=== PATIENT | male | born 1925 | race Caucasian/White ===

== ENCOUNTER 2016-11-24 07:08 | Inpatient (IN) | payer MEDICARE, BC ==
[~2016-11-24] VITALS: Ht 172.7 cm; Wt 102.8 kg
[~2016-11-24 07:08] MED LIST: ASPIRIN 81M81 MG/TA2 PO; ATROVENT INHALE14 GM IH; CARDIZEM CD 30300 MG PO; COZAAR 50MG50 MG/TAB PO; EYE DROPS; GLUCOPHAGE500 MG/TAB PO; GLUCOTROL10 MG PO; INDERAL 20MG20 MG PO; LASIX 20MG TABL20 MG PO; LESCOL XL PO; LEVAQUIN 5500 MG/TA1 PO; MILK OF MA400 MG/52 PO; ONGLYZA5 MG PO; TYLENOL 325MG325 MG PO; ULTRAM 50MG TAB50 MG
[2016-11-24] MEDS ORDERED: STOOL SOFTENER100 M2 PO (07:58)
[2016-11-24 08:17] LABS: ADJUSTED CALCIUM 10.2 mg/dL (8.4-10.2); ALBUMIN 3.7 gm/dL (3.5-5.0); BILIRUBIN,TOTAL 1.5 mg/dL (0.0-1.0); CREATININE, serum 1.03 mg/dL (0.66-1.25); POTASSIUM 4.8 mmol/L (3.4-5.0); TOTAL PROTEIN 7.1 gm/dL (6.4-8.2)
[2016-11-24 08:24] LABS: HEMATOCRIT 40.9 % (42.0-52.0); HEMOGLOBIN 13.6 g/dl (13.5-18.0); MEAN CELL VOLUME 92 fl (80.0-100.0); MEAN CORPUSCULAR HEMOGLOBIN 31 pg (27.0-31.0); MEAN CORPUSCULAR HGB CONC 33 g/dl (33.0-37.0); MEAN PLATELET VOLUME 9.7 fl (7.4-10.4); PLATELET COUNT 202 K/mm3 (130-400); RED BLOOD COUNT 4.44 M/mm3 (4.20-5.60); REDCELL DISTRIBUTION WIDTH-CV 15.1 % (11.5-14.5)
[2016-11-24 08:27] LABS: WHITE BLOOD COUNT 35.1 K/mm3 (4.8-10.8)
[2016-11-24 08:28] LABS: ADD PATHOLOGY DIFF REVIEW NO
[2016-11-24 08:47] LABS: BAND 32 % (0-10); METAMYELOCYTE 1 % (0-0); NEUTROPHILS 44 % (42.0-75.2); PLATELET ESTIMATE NORMAL (NORMAL); TOTAL CELLS COUNTED 200
[2016-11-24 09:03] LABS: TROPONIN-I 0.042 ng/mL (0.000-0.034)
[2016-11-24 09:42] LABS: PH 5 (5-8); SQUAMOUS EPITHELIAL 0-2 /hpf; URINE APPEARANCE Cloudy; URINE BACTERIA None Seen /hpf; URINE BILIRUBIN Negative (NEGATIVE); URINE BLOOD 1+ (NEGATIVE); URINE COLOR Amber; URINE GLUCOSE 2+ (NEGATIVE); URINE KETONE 1+ (NEGATIVE); URINE RBC 0-2 /hpf; URINE UROBILINOGEN Negative (NEGATIVE)
[2016-11-24 15:06] VITALS: BP 144/55; PULSE 96; TEMP 97.6
[2016-11-24 17:15] VITALS: BP 116/70; PULSE 100; TEMP 99
[2016-11-24] MEDS ORDERED: INDERAL60 MG PO (17:50)
[2016-11-24 19:37] VITALS: BP 152/61; PULSE 95; TEMP 97.4
[2016-11-24 23:49] VITALS: BP 119/55; PULSE 83; TEMP 97.9
[2016-11-25] VITALS (8 sets, daily range): BP systolic 102–158; BP diastolic 51–96; PULSE 67–105; TEMP 97.3–98.4
[2016-11-25 07:20] LABS: MEAN CELL VOLUME 95 fl (80.0-100.0); MEAN CORPUSCULAR HGB CONC 33 g/dl (33.0-37.0); PLATELET COUNT 193 K/mm3 (130-400); RED BLOOD COUNT 3.67 M/mm3 (4.20-5.60); REDCELL DISTRIBUTION WIDTH-CV 15.9 % (11.5-14.5); WHITE BLOOD COUNT 18.4 K/mm3 (4.8-10.8)
[2016-11-25 07:23] LABS: ADD PATHOLOGY DIFF REVIEW NO; ADJUSTED CALCIUM 9.6 mg/dL (8.4-10.2); ALBUMIN 3.1 gm/dL (3.5-5.0); CALCIUM 8.9 mg/dL (8.4-10.2); CREATININE, serum 1.47 mg/dL (0.66-1.25); HEMATOCRIT 34.7 % (42.0-52.0); HEMOGLOBIN 11.3 g/dl (13.5-18.0); MEAN CORPUSCULAR HEMOGLOBIN 31 pg (27.0-31.0); PHOSPHOROUS 4.7 mg/dL (2.5-4.5); POTASSIUM 4.5 mmol/L (3.4-5.0); TOTAL PROTEIN 6.4 gm/dL (6.4-8.2)
[2016-11-25 07:46] LABS: TROPONIN-I 0.073 ng/mL (0.000-0.034)
[2016-11-25 07:58] LABS: BAND 17 % (0-10); METAMYELOCYTE 1 % (0-0); NEUTROPHILS 49 % (42.0-75.2); TOTAL CELLS COUNTED 100
[2016-11-26] VITALS (8 sets, daily range): BP systolic 111–170; BP diastolic 45–71; PULSE 61–80; TEMP 97.1–98.7
[2016-11-26 06:56] LABS: HEMOGLOBIN 10.7 g/dl (13.5-18.0); MEAN CELL VOLUME 96 fl (80.0-100.0); MEAN CORPUSCULAR HEMOGLOBIN 30 pg (27.0-31.0); MEAN CORPUSCULAR HGB CONC 32 g/dl (33.0-37.0); PLATELET COUNT 170 K/mm3 (130-400); RED BLOOD COUNT 3.53 M/mm3 (4.20-5.60); REDCELL DISTRIBUTION WIDTH-CV 15.9 % (11.5-14.5)
[2016-11-26 06:57] LABS: ADD PATHOLOGY DIFF REVIEW NO
[2016-11-26 07:01] LABS: INR 1.1 (0.8-3.0); PROTHROMBIN TIME 12.7 SECONDS (9.7-12.8)
[2016-11-26 07:04] LABS: PARTIAL THROMBOPLASTIN TIME 28.2 SECONDS (26.0-37.0)
[2016-11-26 07:05] LABS: CALCIUM 8.9 mg/dL (8.4-10.2); CREATININE, serum 1.55 mg/dL (0.66-1.25); POTASSIUM 4.1 mmol/L (3.4-5.0)
[2016-11-26 07:25] LABS: BAND 3 % (0-10); NEUTROPHILS 65 % (42.0-75.2); PLATELET ESTIMATE NORMAL (NORMAL); TOTAL CELLS COUNTED 100
[2016-11-27 04:00] VITALS: BP 159/81; PULSE 95; TEMP 98.1
[2016-11-27 07:55] VITALS: BP 175/66; PULSE 102; TEMP 98.1
[2016-11-27 09:56] LABS: CREATININE, serum 1.22 mg/dL (0.66-1.25); POTASSIUM 4.3 mmol/L (3.4-5.0)
[2016-11-27 10:05] LABS: BASO % 0.3 % (0.0-2.0); EOS # 0.2 (0.0-0.7); EOS % 1.3 % (0-4.0); GRAN # 7.1 (1.4-6.5); GRAN % 63.7 % (42.2-75.2); LYMPH # 2.4 (1.2-3.4); LYMPH % 21.2 % (20.0-51.0); MEAN CELL VOLUME 95 fl (80.0-100.0); MEAN CORPUSCULAR HGB CONC 32 g/dl (33.0-37.0); MEAN PLATELET VOLUME 9.8 fl (7.4-10.4); MONO # 1.5 (0.1-0.6); PLATELET COUNT 171 K/mm3 (130-400); RED BLOOD COUNT 3.71 M/mm3 (4.20-5.60); REDCELL DISTRIBUTION WIDTH-CV 15.7 % (11.5-14.5); WHITE BLOOD COUNT 11.1 K/mm3 (4.8-10.8)
[2016-11-27 10:19] LABS: HEMATOCRIT 35.3 % (42.0-52.0); HEMOGLOBIN 11.2 g/dl (13.5-18.0); MEAN CORPUSCULAR HEMOGLOBIN 30 pg (27.0-31.0)
[2016-11-27 12:08] VITALS: BP 151/62; PULSE 86; TEMP 97.6
[2016-11-27 15:27] VITALS: BP 134/54; PULSE 69; TEMP 98.2
[2016-11-27 19:40] VITALS: BP 131/56; PULSE 79; TEMP 97.3
[2016-11-27 23:47] VITALS: BP 145/92; PULSE 87; TEMP 98.1
[2016-11-28 04:10] VITALS: BP 156/64; PULSE 87; TEMP 99.7
[2016-11-28 08:17] VITALS: BP 146/86; PULSE 93; TEMP 99.2
[2016-11-28 09:36] LABS: BASO % 0.2 % (0.0-2.0); EOS # 0.1 (0.0-0.7); EOS % 0.8 % (0-4.0); GRAN # 5.2 (1.4-6.5); GRAN % 59.4 % (42.2-75.2); LYMPH # 2.1 (1.2-3.4); LYMPH % 23.6 % (20.0-51.0); MEAN CELL VOLUME 96 fl (80.0-100.0); MEAN CORPUSCULAR HGB CONC 32 g/dl (33.0-37.0); MEAN PLATELET VOLUME 9.5 fl (7.4-10.4); MONO # 1.4 (0.1-0.6); MONO % 15.7 % (1.7-9.3); PLATELET COUNT 181 K/mm3 (130-400); RED BLOOD COUNT 3.63 M/mm3 (4.20-5.60); REDCELL DISTRIBUTION WIDTH-CV 15.6 % (11.5-14.5); WHITE BLOOD COUNT 8.8 K/mm3 (4.8-10.8)
[2016-11-28 09:40] LABS: HEMATOCRIT 34.7 % (42.0-52.0); HEMOGLOBIN 11.2 g/dl (13.5-18.0); MEAN CORPUSCULAR HEMOGLOBIN 31 pg (27.0-31.0)
[2016-11-28 09:47] LABS: CREATININE, serum 1.01 mg/dL (0.66-1.25); POTASSIUM 4.4 mmol/L (3.4-5.0)
[2016-11-28 11:20] VITALS: BP 138/51; PULSE 72; TEMP 98.8
[2016-11-28 17:44] VITALS: BP 147/55; PULSE 69; TEMP 97.4
[2016-11-28 20:08] VITALS: BP 192/55; PULSE 90; TEMP 98.9
[2016-11-28 23:32] VITALS: BP 153/52; PULSE 78; TEMP 98.6
[2016-11-29] VITALS (14 sets, daily range): BP systolic 133–178; BP diastolic 51–92; PULSE 91–108; TEMP 97.8–99.5
[2016-11-29 07:10] LABS: MEAN CELL VOLUME 95 fl (80.0-100.0); MEAN CORPUSCULAR HGB CONC 33 g/dl (33.0-37.0); MEAN PLATELET VOLUME 9.4 fl (7.4-10.4); PLATELET COUNT 173 K/mm3 (130-400); RED BLOOD COUNT 3.68 M/mm3 (4.20-5.60); REDCELL DISTRIBUTION WIDTH-CV 15.7 % (11.5-14.5); WHITE BLOOD COUNT 10.1 K/mm3 (4.8-10.8)
[2016-11-29 07:16] LABS: ADD PATHOLOGY DIFF REVIEW NO; HEMATOCRIT 34.8 % (42.0-52.0); HEMOGLOBIN 11.3 g/dl (13.5-18.0); MEAN CORPUSCULAR HEMOGLOBIN 31 pg (27.0-31.0)
[2016-11-29 07:28] LABS: CALCIUM 9.1 mg/dL (8.4-10.2); CREATININE, serum 1.02 mg/dL (0.66-1.25); POTASSIUM 4.2 mmol/L (3.4-5.0)
[2016-11-29 07:59] LABS: BAND 15 % (0-10); NEUTROPHILS 46 % (42.0-75.2); TOTAL CELLS COUNTED 100
[2016-11-29 08:00] LABS: HYPOCHROMIA 2+; PLATELET ESTIMATE NORMAL (NORMAL)
[2016-11-30 03:52] VITALS: BP 155/62; PULSE 92; TEMP 98
[2016-11-30 07:39] LABS: MEAN CELL VOLUME 96 fl (80.0-100.0); MEAN CORPUSCULAR HGB CONC 32 g/dl (33.0-37.0); MEAN PLATELET VOLUME 9.4 fl (7.4-10.4); PLATELET COUNT 169 K/mm3 (130-400); RED BLOOD COUNT 3.25 M/mm3 (4.20-5.60); REDCELL DISTRIBUTION WIDTH-CV 15.7 % (11.5-14.5); WHITE BLOOD COUNT 12.4 K/mm3 (4.8-10.8)
[2016-11-30 07:41] LABS: HEMATOCRIT 31.3 % (42.0-52.0); MEAN CORPUSCULAR HEMOGLOBIN 31 pg (27.0-31.0)
[2016-11-30 07:49] LABS: ADJUSTED CALCIUM 9.7 mg/dL (8.4-10.2); ALBUMIN 2.9 gm/dL (3.5-5.0); BILIRUBIN,TOTAL 0.8 mg/dL (0.0-1.0); CALCIUM 8.8 mg/dL (8.4-10.2); CREATININE, serum 0.99 mg/dL (0.66-1.25); POTASSIUM 4.2 mmol/L (3.4-5.0); TOTAL PROTEIN 6.3 gm/dL (6.4-8.2)
[2016-11-30 08:12] VITALS: BP 154/70; PULSE 100; TEMP 98
[2016-11-30 11:49] VITALS: BP 150/63; PULSE 93; TEMP 97.8
[2016-11-30 16:08] VITALS: BP 144/48; PULSE 77; TEMP 98.2
[2016-11-30 20:15] VITALS: BP 150/61; PULSE 84; TEMP 97.8
[2016-11-30 23:48] VITALS: BP 138/78; PULSE 86; TEMP 98.3
[2016-12-01 04:40] VITALS: BP 175/66; PULSE 84; TEMP 98.3
[2016-12-01 08:16] VITALS: BP 123/53; PULSE 85; TEMP 98.1
[2016-12-01 08:25] LABS: ADJUSTED CALCIUM 9.7 mg/dL (8.4-10.2); ALBUMIN 3.1 gm/dL (3.5-5.0); BILIRUBIN,TOTAL 0.9 mg/dL (0.0-1.0); CREATININE, serum 1.07 mg/dL (0.66-1.25); MAGNESIUM 1.6 mg/dL (1.6-2.3); POTASSIUM 4.2 mmol/L (3.4-5.0); TOTAL PROTEIN 6.6 gm/dL (6.4-8.2)
== END 2016-12-01 11:30 | DRG 564 ==
LOC: COL.ER 07:08 → MEDICAL 10:12
PROVIDERS: Family Medicine; Internal Medicine; Internal Medicine Cardiovascular Disease; Nurse Practitioner; Physician Assistant
PROC: B2111ZZ Fluoroscopy of Multiple Coronary Arteries using Low Osmolar Contrast (ICD-10-PCS; principal; 2016-11-29)
PROC: B2151ZZ Fluoroscopy of Left Heart using Low Osmolar Contrast (ICD-10-PCS; 2016-11-29)
PROC: 4A023N7 Measurement of Cardiac Sampling and Pressure, Left Heart, Percutaneous Approach (ICD-10-PCS; 2016-11-29)
DX: T79.6XXA Traumatic ischemia of muscle, initial encounter (principal); I21.4 Non-ST elevation (NSTEMI) myocardial infarction; I50.23 Acute on chronic systolic (congestive) heart failure; N17.9 Acute kidney failure, unspecified; Z66 Do not resuscitate; W18.30XA Fall on same level, unspecified, initial encounter; I11.0 Hypertensive heart disease with heart failure; E11.42 Type 2 diabetes mellitus with diabetic polyneuropathy; Z87.891 Personal history of nicotine dependence; I25.10 Atherosclerotic heart disease of native coronary artery without angina pectoris
CPT/HCPCS: 99232-AI; 99233-AI; 99239; A9270-GY; A9284; A9502; C1760; C1894; G0378; J0360; J1644; J1650; J1815; J2250; J2405; J2785; J3010; J7030; Q9967

== ENCOUNTER 2016-12-01 11:25 | Inpatient (IN) | payer MEDICARE, BC ==
[~2016-12-01] VITALS: Ht 170.2 cm; Wt 104.1 kg
[~2016-12-01 11:25] MED LIST changes: +INDERAL60 MG PO; +STOOL SOFTENER100 M2 PO
[2016-12-01 12:35] VITALS: BP 115/52; PULSE 72
[2016-12-01 17:22] VITALS: BP 142/48; PULSE 72; TEMP 98.3
[2016-12-01 18:12] VITALS: BP 142/48; PULSE 72; TEMP 98.3
[2016-12-02 02:34] VITALS: BP 149/68; PULSE 93; TEMP 98.4
[2016-12-02 18:38] VITALS: BP 123/40; PULSE 75; TEMP 98.7
[2016-12-03 05:52] VITALS: BP 146/69; PULSE 93; TEMP 98
[2016-12-03 08:14] LABS: ADJUSTED CALCIUM 9.9 mg/dL (8.4-10.2); ALBUMIN 3.2 gm/dL (3.5-5.0); BILIRUBIN,TOTAL 1.1 mg/dL (0.0-1.0); CALCIUM 9.3 mg/dL (8.4-10.2); CREATININE, serum 1.08 mg/dL (0.66-1.25); MAGNESIUM 1.6 mg/dL (1.6-2.3); POTASSIUM 4.5 mmol/L (3.4-5.0); TOTAL PROTEIN 6.8 gm/dL (6.4-8.2)
[2016-12-03 18:39] VITALS: BP 139/73; PULSE 109; TEMP 98.5
[2016-12-04 06:02] VITALS: BP 162/63; PULSE 94; TEMP 98.3
[2016-12-04 16:00] VITALS: BP 142/58; PULSE 85; TEMP 98.9
[2016-12-05 06:12] VITALS: BP 149/58; PULSE 87; TEMP 97.2
[2016-12-05 16:44] VITALS: BP 148/57; PULSE 70; TEMP 98.3
[2016-12-06 05:59] VITALS: BP 140/97; PULSE 85; TEMP 98.4
[2016-12-06 07:42] LABS: ADJUSTED CALCIUM 10.2 mg/dL (8.4-10.2); ALBUMIN 3.1 gm/dL (3.5-5.0); CALCIUM 9.5 mg/dL (8.4-10.2); CREATININE, serum 1.15 mg/dL (0.66-1.25); MAGNESIUM 1.6 mg/dL (1.6-2.3); POTASSIUM 4.1 mmol/L (3.4-5.0); TOTAL PROTEIN 6.6 gm/dL (6.4-8.2)
[2016-12-06 18:00] VITALS: BP 169/60; PULSE 96; TEMP 99.2
[2016-12-07 04:05] VITALS: BP 162/59; PULSE 78; TEMP 97.8
[2016-12-07 16:32] VITALS: BP 146/50; PULSE 70; TEMP 97.7
[2016-12-08 04:43] VITALS: BP 173/67; PULSE 100; TEMP 98.5
[2016-12-08 08:00] LABS: ADJUSTED CALCIUM 10.2 mg/dL (8.4-10.2); ALBUMIN 3.5 gm/dL (3.5-5.0); BILIRUBIN,TOTAL 0.9 mg/dL (0.0-1.0); CALCIUM 9.8 mg/dL (8.4-10.2); CREATININE, serum 1.22 mg/dL (0.66-1.25); TOTAL PROTEIN 7.4 gm/dL (6.4-8.2)
[2016-12-08 15:41] VITALS: BP 127/47; PULSE 75; TEMP 97.8
[2016-12-09 05:16] VITALS: BP 152/66; PULSE 93; TEMP 97.5
[2016-12-09 08:06] VITALS: PULSE 99
[2016-12-09 17:24] VITALS: BP 131/47; PULSE 66; TEMP 97.5
[2016-12-10 04:17] VITALS: BP 146/68; PULSE 82; TEMP 98.3
[2016-12-10 08:40] LABS: ADJUSTED CALCIUM 10.3 mg/dL (8.4-10.2); ALBUMIN 3.2 gm/dL (3.5-5.0); BILIRUBIN,TOTAL 0.9 mg/dL (0.0-1.0); CALCIUM 9.7 mg/dL (8.4-10.2); CREATININE, serum 1.26 mg/dL (0.66-1.25); MAGNESIUM 1.6 mg/dL (1.6-2.3); POTASSIUM 4.5 mmol/L (3.4-5.0); TOTAL PROTEIN 6.6 gm/dL (6.4-8.2)
[2016-12-10 17:02] VITALS: BP 143/50; PULSE 72; TEMP 97.7
[2016-12-11 05:41] VITALS: BP 143/66; PULSE 73; TEMP 98
[2016-12-11] MEDS ORDERED: IMDUR 30MG30 MG/TAB PO (06:00)
[2016-12-11] MEDS ORDERED: NITROSTAT0.4 MG/TAB SL (06:00)
[2016-12-11] MEDS ORDERED: TOPROL XL 50MG50 MG PO (06:00)
[2016-12-11] MEDS ORDERED: CARDIZEM CD 30300 MG PO (06:01)
[2016-12-11] MEDS ORDERED: LASIX 20MG TABL20 MG PO (06:01)
[2016-12-11] MEDS ORDERED: COZAAR 50MG50 MG/TAB PO (06:01)
[2016-12-11] MEDS ORDERED: HYDROCORTISO28.35 G1 TP (06:02)
[2016-12-11] MEDS ORDERED: NORCO 325 MG-51 TAB PO (06:04)
[2016-12-11] MEDS ORDERED: PROAIR HFA0.09 MG/AC IH (06:06)
== END 2016-12-11 12:30 | disposition home health service (06) | DRG 949 ==
PROVIDERS: Internal Medicine
DX: T79.6XXD Traumatic ischemia of muscle, subsequent encounter (principal); I50.23 Acute on chronic systolic (congestive) heart failure; I21.4 Non-ST elevation (NSTEMI) myocardial infarction; N17.9 Acute kidney failure, unspecified; I11.0 Hypertensive heart disease with heart failure; E11.42 Type 2 diabetes mellitus with diabetic polyneuropathy
CPT/HCPCS: 99222-AI; 99232-AI; 99233-AI; 99239; J1815